=== PATIENT | female | born 1970 | race Caucasian/White ===

== ENCOUNTER 2016-08-28 14:00 | Emergency (ER) | payer OTHER ==
[~2016-08-28] VITALS: Ht 162.5 cm; Wt 80.7 kg
--- NOTE | ~2016-08-28 | EKG ---
[place], [place] ELECTROCARDIOGRAM REPORT NAME: HAMZAH PAREDES UNIT #: [id number] ROOM: DOCTOR: ISABELLE ALEJO MD BIRTHDATE: [birth year] DOS: 08/28/2016 TIME: 14:54:08 RATE AND RHYTHM: Normal sinus rhythm at 69 beats per minute. MO interval 133 milliseconds, QRS duration 76 milliseconds. Corrected QT interval is 444 milliseconds, QRS axis 44. IMPRESSION: 1. Normal sinus rhythm. 2. RSR prime in V1 or V2, probably normal variant. It is essentially a normal electrocardiogram. ISABELLE ALEJO MD CM:EKGRPT:ELECTROCARDIOGRAM REPORT [id number] ISABELLE ALEJO MD
[~2016-08-28 14:00] MED LIST: 'PARAFON FORTE500 M1 PO; B12,B-12,B 12500 MC1 PO; HYDROCODONE BIT1 T11 PO; MEDROL DOSEPAK4 MG PO; PROZAC20 MG PO; ROBAXIN750 MG PO; SMZ-TMP 400 MG-1 TAB PO; TRAMADOL HCL50 MG PO; ZITHROMAX250 MG PO; ZYRTEC10 MG PO
[2016-08-28] MEDS ORDERED: ATORVASTATIN CA10 M1 PO (14:15)
[2016-08-28] MEDS ORDERED: PHARMASSURE1000 MCG PO (14:15)
[2016-08-28] MEDS ORDERED: VENLAFAXINE HY150 M2 PO (14:15)
[2016-08-28] MEDS ORDERED: MASON NATURAL2000 IU PO (14:16)
[2016-08-28 14:49] LABS: BASO % 0.6 % (0.0-1.0); EOS # 0.1 10*3/uL (0.0-0.4); EOS % 1.1 % (1.0-4.0); HEMATOCRIT 42.1 % (37.0-47.0); HEMOGLOBIN 14.3 g/dl (12.0-16.0); LYMPH # 3.2 10*3/uL (1.3-4.4); LYMPH % 44.8 % (27.0-41.0); MEAN CELL VOLUME 90.1 fl (81.0-99.0); MEAN CORPUSCULAR HGB 30.6 pg (27.0-31.0); MEAN PLATELET VOLUME 10.4 fl (9.6-12.3); MONO # 0.4 10*3/uL (0.1-1.0); MONO % 5.9 % (3.0-9.0); NEUT # 3.4 10*3/uL (2.3-7.9); NEUT % 47.3 % (47.0-73.0); PLATELET COUNT AUTOMATED 258 10*3/uL (130-400); RED BLOOD COUNT 4.67 10*6/uL (4.10-5.10); RED CELL DISTRI WIDTH 12.3 % (0-14.5); WHITE BLOOD COUNT 7.2 10*3/uL (4.8-10.8)
[2016-08-28 15:04] LABS: BUN 11 mg/dl (7-24); CARBON DIOXIDE 25 mmol/L (21-32); CHLORIDE 111 mmol/L (98-107); EST GLOM FILT AFRICAN AMERICAN > 60 ml/min; GLUCOSE 86 mg/dL (65-99); POTASSIUM 3.5 mmol/L (3.5-5.1); SODIUM 146 mmol/L (136-145); TROPONIN I < 0.015 ng/ml (<0.5)
[2016-08-28 16:21] LABS: BILIRUBIN NEGATIVE (NEGATIVE); BLOOD NEGATIVE (NEGATIVE); CLARITY CLEAR (CLEAR); COLOR YELLOW (YELLOW); GLUCOSE NEGATIVE (NEGATIVE); KETONE NEGATIVE (NEGATIVE); LEUKO ESTERASE NEGATIVE (NEGATIVE); NITRITE NEGATIVE (NEGATIVE); PROTEIN NEGATIVE (NEGATIVE); UROBILINOGEN 0.2 E.U./dl (0.2-1.0)
[2016-08-28 16:28] LABS: MUCOUS TRACE; RBC 0-2 rbc/hpf (0-2); URINE REFLEX COMMENT NO (NO)
[2016-08-28 16:30] LABS: URINE AMPHETAMINES < 1000 (1000ng/ml); URINE BARBITURATES < 200 (200ng/ml); URINE COCAINE < 300 (300ng/ml)
[2016-10-07] MEDS ORDERED: BENADRYL ALLERG25 M5 PO (21:27)
[2016-10-07] MEDS ORDERED: CLARITIN10 MG PO (21:27)
[2016-10-07] MEDS ORDERED: IBUPROFEN600 MG PO (21:27)
[2016-10-07] MEDS ORDERED: VISTARIL25 MG PO (21:51)
[2016-10-07] MEDS ORDERED: PREDNISONE20 M1 PO (21:51)
== END 2016-08-28 18:24 | disposition home or self-care (01) ==
LOC: ED 14:00
PROVIDERS: Emergency Medicine
DX: G40.909 Epilepsy, unspecified, not intractable, without status epilepticus (principal); J45.909 Unspecified asthma, uncomplicated; F32.9 Major depressive disorder, single episode, unspecified; F17.200 Nicotine dependence, unspecified, uncomplicated; Z90.710 Acquired absence of both cervix and uterus; E53.8 Deficiency of other specified B group vitamins; Z88.6 Allergy status to analgesic agent; Z88.8 Allergy status to other drugs, medicaments and biological substances

== ENCOUNTER 2017-08-04 15:16 | Emergency (ER) | payer SELFPAY ==
[~2017-08-04] VITALS: Wt 76.2 kg
[~2017-08-04 15:16] MED LIST changes: +ATORVASTATIN CA10 M1 PO; +BENADRYL ALLERG25 M5 PO; +CLARITIN10 MG PO; +IBUPROFEN600 MG PO; +MASON NATURAL2000 IU PO; +PHARMASSURE1000 MCG PO; +PREDNISONE20 M1 PO; +VENLAFAXINE HY150 M2 PO; +VISTARIL25 MG PO
[2017-08-04 16:33] LABS: BASO % 0.3 % (0.0-1.0); EOS % 0.2 % (1.0-4.0); HEMATOCRIT 40.5 % (37.0-47.0); HEMOGLOBIN 13.9 g/dl (12.0-16.0); LYMPH # 0.6 10*3/uL (1.3-4.4); MEAN CELL VOLUME 87.5 fl (81.0-99.0); MEAN CORPUSCULAR HGB CONC 34.3 g/dl (33.0-37.0); MEAN PLATELET VOLUME 10.2 fl (9.6-12.3); MONO # 0.5 10*3/uL (0.1-1.0); MONO % 8.5 % (3.0-9.0); NEUT # 4.9 10*3/uL (2.3-7.9); NEUT % 80.5 % (47.0-73.0); PLATELET COUNT AUTOMATED 212 10*3/uL (130-400); RED BLOOD COUNT 4.63 10*6/uL (4.10-5.10); RED CELL DISTRI WIDTH 12.4 % (0-14.5); WHITE BLOOD COUNT 6.1 10*3/uL (4.8-10.8)
[2017-08-04 16:50] LABS: ALBUMIN 3.5 gm/dl (3.1-4.5); ALKALINE PHOSPHATASE 91 U/L (45-117); BUN 7 mg/dl (7-24); CHLORIDE 107 mmol/L (98-107); POTASSIUM 3.6 mmol/L (3.5-5.1); SGOT/AST 13 IU/L (3-35); SGPT/ALT 17 U/L (12-78); SODIUM 139 mmol/L (136-145)
[2017-08-04] MEDS ORDERED: FLONASE ALLERG9.9 ML NAS (16:55)
[2017-08-04] MEDS ORDERED: ZOFRAN ODT4 MG SL (16:55)
== END 2017-08-04 16:56 | disposition home or self-care (01) ==
LOC: ED 15:16
PROVIDERS: Physician Assistant
DX: B34.9 Viral infection, unspecified (principal); F17.200 Nicotine dependence, unspecified, uncomplicated; Z88.8 Allergy status to other drugs, medicaments and biological substances; Z88.6 Allergy status to analgesic agent; Z88.5 Allergy status to narcotic agent; Z90.710 Acquired absence of both cervix and uterus

== ENCOUNTER 2018-07-10 20:20 | Emergency (ER) | payer OTHER ==
[~2018-07-10] VITALS: Ht 162.5 cm; Wt 83.9 kg
[~2018-07-10 20:20] MED LIST changes: +FLONASE ALLERG9.9 ML NAS; +ZOFRAN ODT4 MG SL
== END 2018-07-10 22:25 | disposition home or self-care (01) ==
LOC: ED 20:20
DX: S66.911A Strain of unspecified muscle, fascia and tendon at wrist and hand level, right hand, initial encounter (principal); F17.200 Nicotine dependence, unspecified, uncomplicated; Z88.6 Allergy status to analgesic agent; Z88.5 Allergy status to narcotic agent; Z79.899 Other long term (current) drug therapy; Z90.710 Acquired absence of both cervix and uterus; W00.0XXA Fall on same level due to ice and snow, initial encounter; Y93.89 Activity, other specified; Y92.89 Other specified places as the place of occurrence of the external cause; Y99.8 Other external cause status

== ENCOUNTER 2018-10-02 14:39 | Emergency (ER) | payer OTHER ==
[~2018-10-02] VITALS: Wt 76.2 kg
[2018-10-02] MEDS ORDERED: EPIPEN 2-P0.3 MG/0.3 IJ (15:22)
[2018-10-02] MEDS ORDERED: MEDROL DOSEPAK4 MG PO (15:22)
[2018-10-02] MEDS ORDERED: PEPCID20 MG PO (15:22)
[2018-10-02] MEDS ORDERED: CLARITIN10 MG PO (15:22)
[2018-10-02 15:29] LABS: BASO % 0.2 % (0.0-1.0); EOS % 0.3 % (1.0-4.0); HEMATOCRIT 46.2 % (37.0-47.0); HEMOGLOBIN 15.7 g/dl (12.0-16.0); LYMPH # 2.2 10*3/uL (1.3-4.4); LYMPH % 15.6 % (27.0-41.0); MEAN CELL VOLUME 90.4 fl (81.0-99.0); MEAN CORPUSCULAR HGB 30.7 pg (27.0-31.0); MEAN PLATELET VOLUME 10.5 fl (9.6-12.3); MONO # 0.4 10*3/uL (0.1-1.0); MONO % 3.1 % (3.0-9.0); NEUT # 11.3 10*3/uL (2.3-7.9); NEUT % 80.3 % (47.0-73.0); PLATELET COUNT AUTOMATED 276 10*3/uL (130-400); RED BLOOD COUNT 5.11 10*6/uL (4.10-5.10); RED CELL DISTRI WIDTH 12.6 % (0-14.5)
[2018-10-02 16:04] LABS: BUN 7 mg/dl (7-24); CHLORIDE 109 mmol/L (98-107); CREATININE 0.68 mg/dL (0.55-1.02); POTASSIUM 3.1 mmol/L (3.5-5.1); SODIUM 143 mmol/L (136-145)
== END 2018-10-02 18:06 | disposition home or self-care (01) ==
LOC: ED 14:39
PROVIDERS: Emergency Medicine
DX: T88.6XXA Anaphylactic reaction due to adverse effect of correct drug or medicament properly administered, initial encounter (principal); T36.1X5A Adverse effect of cephalosporins and other beta-lactam antibiotics, initial encounter; G40.909 Epilepsy, unspecified, not intractable, without status epilepticus; J45.909 Unspecified asthma, uncomplicated; F17.200 Nicotine dependence, unspecified, uncomplicated; Z88.6 Allergy status to analgesic agent; Z88.5 Allergy status to narcotic agent; Z88.1 Allergy status to other antibiotic agents; Z90.710 Acquired absence of both cervix and uterus; Y92.89 Other specified places as the place of occurrence of the external cause

== ENCOUNTER 2019-02-04 18:02 | Emergency (ER) | payer OTHER ==
[~2019-02-04] VITALS: Ht 162.5 cm; Wt 85.7 kg
--- NOTE | ~2019-02-04 | EKG ---
[place], [place] ELECTROCARDIOGRAM REPORT NAME: HAMZAH PAREDES UNIT #: [id number] ROOM: DOCTOR: EPIPHANY DRAFT REPORT BIRTHDATE: [address] 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
[~2019-02-04 18:02] MED LIST changes: +EPIPEN 2-P0.3 MG/0.3 IJ; +PEPCID20 MG PO
[2019-02-04 19:06] LABS: HEMATOCRIT 43.7 % (37.0-47.0); HEMOGLOBIN 14.5 g/dl (12.0-16.0); MEAN CELL VOLUME 91.6 fl (81.0-99.0); MEAN CORPUSCULAR HGB 30.4 pg (27.0-31.0); MEAN CORPUSCULAR HGB CONC 33.2 g/dl (33.0-37.0); MEAN PLATELET VOLUME 10.3 fl (9.6-12.3); PLATELET COUNT AUTOMATED 290 10*3/uL (130-400); RED BLOOD COUNT 4.77 10*6/uL (4.10-5.10); RED CELL DISTRI WIDTH 12.1 % (0-14.5); WHITE BLOOD COUNT 10.4 10*3/uL (4.8-10.8)
[2019-02-04 19:22] LABS: ALBUMIN 3.5 gm/dl (3.1-4.5); ALKALINE PHOSPHATASE 93 U/L (45-117); BUN 11 mg/dl (7-24); CHLORIDE 108 mmol/L (98-107); CREATININE 0.77 mg/dL (0.55-1.02); LIPASE 94 U/L (73-393); POTASSIUM 3.8 mmol/L (3.5-5.1); SGOT/AST 11 IU/L (3-35); SGPT/ALT 16 U/L (12-78); SODIUM 141 mmol/L (136-145); TOTAL PROTEIN 6.9 gm/dL (6.4-8.2)
[2019-02-04 19:25] LABS: TROPONIN I < 0.015 ng/ml (<0.045)
[2019-02-04 19:28] LABS: INTERNATIONAL NORM RATIO 0.9 (2.0-3.5)
[2019-02-04 19:40] LABS: TOTAL CELLS COUNTED 100 #CELLS
[2019-02-04 19:41] LABS: PLATELET SUFFICIENCY NORMAL (NORMAL)
[2019-02-04] MEDS ORDERED: LEVAQUIN750 M1 PO (20:31)
[2019-02-04] MEDS ORDERED: PROVENTIL HFA6.7 GM INH (20:31)
[2019-02-04] MEDS ORDERED: ROBITUSSIN DM 101 OZ PO (20:31)
[2019-02-04] MEDS ORDERED: PREDNISONE50 MG PO (20:31)
== END 2019-02-04 21:05 | disposition home or self-care (01) ==
LOC: ED 18:02
PROVIDERS: Nurse Practitioner Family
DX: J18.1 Lobar pneumonia, unspecified organism (principal); J44.9 Chronic obstructive pulmonary disease, unspecified; G40.909 Epilepsy, unspecified, not intractable, without status epilepticus; F17.200 Nicotine dependence, unspecified, uncomplicated; Z88.6 Allergy status to analgesic agent; Z88.1 Allergy status to other antibiotic agents; Z88.5 Allergy status to narcotic agent; Z79.899 Other long term (current) drug therapy; Z90.710 Acquired absence of both cervix and uterus

== ENCOUNTER 2019-05-15 18:22 | Emergency (ER) | payer SELFPAY ==
[~2019-05-15] VITALS: Ht 162.5 cm; Wt 84.4 kg
[~2019-05-15 18:22] MED LIST changes: +LEVAQUIN750 M1 PO; +PREDNISONE50 MG PO; +PROVENTIL HFA6.7 GM INH; +ROBITUSSIN DM 101 OZ PO
[2019-05-15] MEDS ORDERED: ANAPROX DS550 MG PO (20:06)
== END 2019-05-15 20:35 | disposition home or self-care (01) ==
LOC: ED 18:22
DX: M25.511 Pain in right shoulder (principal); Z90.710 Acquired absence of both cervix and uterus; F17.200 Nicotine dependence, unspecified, uncomplicated; Z79.899 Other long term (current) drug therapy; Z88.6 Allergy status to analgesic agent; Z88.5 Allergy status to narcotic agent; Z88.1 Allergy status to other antibiotic agents

== ENCOUNTER 2019-10-03 14:03 | Inpatient (IN) | payer SELFPAY ==
[~2019-10-03] VITALS: Ht 165.1 cm; Wt 84.4 kg
[~2019-10-03 14:03] MED LIST changes: +ANAPROX DS550 MG PO
[2019-10-03 14:11] VITALS: BP 116/59
--- NOTE | 2019-10-03 15:03 | NUR ---
PATIENT UNSURE OF ALL OF HER ALLERGIES TO MEDICATIONS. WHEN ASKED IF PATIENT IS ALLERGIC TO TORADOL OR ZOFRAN SHE STATES SHE DOESNT KNOW. JULIO TALAMANTES NOTIFED AND SHE STATES TO ASK HER IF SHE CAN TAKE MOTRIN. WHEN ASKING PATIENT IS SHE CAN TAKE MOTRIN SHE STATES "I GUESS SO". WHEN ASKED IF SHE HAD AN ALLERGY TO MOTRIN SHE IMMEADIATELY STARTED TO CRY. TORADOL AND ZOFRAN NOT GIVEN AND DC'D PER NOT HAVING COMPLETELY ALLERGY HISTORY OF PATIENT. JULIO TALAMANTES NOTIFIED.
[2019-10-03 15:12] LABS: BASO % 0.7 % (0.0-1.0); EOS # 0.2 10*3/uL (0.0-0.4); EOS % 2.9 % (1.0-4.0); HEMATOCRIT 48.4 % (37.0-47.0); HEMOGLOBIN 16.2 g/dl (12.0-16.0); LYMPH # 2.4 10*3/uL (1.3-4.4); LYMPH % 41.1 % (27.0-41.0); MEAN CELL VOLUME 90.8 fl (81.0-99.0); MEAN CORPUSCULAR HGB 30.4 pg (27.0-31.0); MEAN CORPUSCULAR HGB CONC 33.5 g/dl (33.0-37.0); MEAN PLATELET VOLUME 10.8 fl (9.6-12.3); MONO # 0.8 10*3/uL (0.1-1.0); MONO % 13.2 % (3.0-9.0); NEUT # 2.5 10*3/uL (2.3-7.9); NEUT % 41.9 % (47.0-73.0); PLATELET COUNT AUTOMATED 245 10*3/uL (130-400); RED BLOOD COUNT 5.33 10*6/uL (4.10-5.10); RED CELL DISTRI WIDTH 12.3 % (0-14.5); WHITE BLOOD COUNT 5.9 10*3/uL (4.8-10.8)
--- NOTE | 2019-10-03 15:20 | NUR ---
JULIO TALAMANTES STATES THAT SHE DOES NOT WANT THE ZOFRAN GIVEN TO PATIENT AND ORDERED BENADRYL INSTEAD.
[2019-10-03 15:23] LABS: ACT PARTIAL THROMBO TIME 29.3 SECONDS (20.0-32.1)
[2019-10-03 15:28] LABS: ALBUMIN 3.9 gm/dl (3.1-4.5); ALKALINE PHOSPHATASE 98 U/L (45-117); BUN 12 mg/dl (7-24); CHLORIDE 110 mmol/L (98-107); CREATININE 0.76 mg/dL (0.55-1.02); LIPASE 371 U/L (73-393); POTASSIUM 4.6 mmol/L (3.5-5.1); SGOT/AST 12 IU/L (3-35); SGPT/ALT 20 U/L (12-78); SODIUM 141 mmol/L (136-145); TOTAL PROTEIN 7.4 gm/dL (6.4-8.2); TROPONIN I 0.032 ng/ml (<0.045)
[2019-10-03 15:46] LABS: BILIRUBIN NEGATIVE (NEGATIVE); CLARITY CLEAR (CLEAR); COLOR YELLOW (YELLOW); GLUCOSE NEGATIVE (NEGATIVE); KETONE TRACE (NEGATIVE); SPECIFIC GRAVITY 1.005 (1.005-1.030)
[2019-10-03 15:47] LABS: BLOOD NEGATIVE (NEGATIVE); LEUKO ESTERASE NEGATIVE (NEGATIVE); NITRITE NEGATIVE (NEGATIVE); PH 7.5 (5.0-9.0); UROBILINOGEN 0.2 E.U./dl (0.2-1.0)
[2019-10-03 15:52] LABS: BACTERIA 2+; MUCOUS 1+; RBC 0-2 rbc/hpf (0-2)
--- NOTE | 2019-10-03 17:53 | NUR ---
PATIENT REPORT GIVEN TO GEO CONNELLY AT THIS TIME. PATIENT TAKEN TO FLOOR BY LYNDA CONNELLY.
[2019-10-03 18:00] VITALS: BP 100/50
--- NOTE | 2019-10-03 18:00 | NUR ---
A 49, admitted to , under the services of ISABELLE Raymundo MD with a diagnosis of CHEST PAIN. Chief complaint is ABDOMINLA PAIN N/V/D. Patient arrived via stretcher from ER. Monitor applied. Initial assessment completed. Vital signs taken and recorded. ISABELLE RAYMUNDO MD notified of admission to the unit. Orders received. See assessment for past medical history, medications and allergies. Patient and/or family oriented to unit. [facility] visitation policy reviewed. Clothing/patient valuable form completed. DRU HEARD
[2019-10-03 20:00] VITALS: BP 129/58
--- NOTE | 2019-10-03 21:04 | NUR ---
MESSAGE LEFT WITH DR. ALEJO AWAITING CALL BACK.
[2019-10-04] VITALS: BP 110/60
--- NOTE | 2019-10-04 09:00 | NUR ---
Social Media Project Manager in to talk to patient. Patient states lives at home with her mother and 2 brothers. There are 16 steps in the home. Physician: Dr. Villalpando Pharmacy: [facility] Home health services: none Patient's level of ADLs: INDEPENDENT Patient has working utilities: yes DME: none Follow-up physician's appointment after d/c: she prefers to make her own follow up appt after discharge Does patient want to access PORTAL?: no Discharge plan discussed with patient. She lives at home with her family. She is independent in her ADLs and ambulation. Discussed home health care services and she denies any home needs at this time. When medically stable she will be discharged to home. She is unsure of transportation on discharge at this time. ASHOK SOOD
[2019-10-04 12:00] VITALS: BP 119/56
--- NOTE | 2019-10-04 15:18 | NUR ---
Spoke with regarding consult for epigastric pain. Test results were reviewed with physician. No new orders. Physician to follow up at bedside.
[2019-10-04 16:00] VITALS: BP 113/44
--- NOTE | 2019-10-04 19:23 | NUR ---
24 HR chart check completed.
[2019-10-04 20:00] VITALS: BP 107/72
[2019-10-05] VITALS: BP 115/58
[2019-10-05 08:15] VITALS: BP 118/72
--- NOTE | 2019-10-05 09:00 | NUR ---
Public Finance Specialist in to see patient. No new needs or request at this time. She denies any home needs. When medically stable she will be discharged to home.
[2019-10-05 12:00] VITALS: BP 113/45
--- NOTE | 2019-10-05 13:12 | NUR ---
Contacted radiology regarding US results. She contacted radiologist to expidiate results. Face to face encounter with Dr. Peter regarding this and patients request for nicotrol inhaler. See new orders.
--- NOTE | 2019-10-05 15:50 | NUR ---
Called Dr. Farrell to review US report. Per physician, full liquid diet, NPO for breakfast and EGD tomorrow morning.See new orders.
--- NOTE | 2019-10-05 15:54 | NUR ---
Notified of US reports and 's treatment plan.
[2019-10-05 16:00] VITALS: BP 125/56
[2019-10-05 20:00] VITALS: BP 151/72
--- NOTE | 2019-10-05 20:13 | NUR ---
24 HR chart check completed.
--- NOTE | 2019-10-05 21:00 | NUR ---
RESTING IN BED WITH NO DISTRESS NOTED. RESPIRATIONS EASY. LUNGS DIMINISHED WITH SCATTERED WHEEZES. PULSE OX 96% RA. NON-PROD COUGH. IV FLUIDS INFUSING PER ORDER. CALL LIGHT WITHIN REACH. NO VOICED COMPLAINTS
[2019-10-06] VITALS (8 sets, daily range): BP systolic 110–140; BP diastolic 51–80
--- NOTE | 2019-10-06 | NUR ---
RESTING WITH EYES CLOSED. RESPIRATIONS EASY. VSS. IV FLUIDS MAINTAINED. CALL LIGHT WITHIN REACH.
--- NOTE | 2019-10-06 01:30 | NUR ---
AMBULATING HALLWAY. NO DISTRESS NOTED.
--- NOTE | 2019-10-06 06:00 | NUR ---
RESTED THROUGHOUT NIGHT. IV FLUIDS INFUSING. NPO STATUS MAINTAINED FOR SURGERY. CALL LIGHT WITHIN REACH. NO VOICED COMPLAINTS THIS SHIFT.
[2019-10-06 06:14] LABS: HEMATOCRIT 43.4 % (37.0-47.0); HEMOGLOBIN 14.2 g/dl (12.0-16.0); MEAN CELL VOLUME 91.6 fl (81.0-99.0); MEAN CORPUSCULAR HGB CONC 32.7 g/dl (33.0-37.0); MEAN PLATELET VOLUME 11.2 fl (9.6-12.3); PLATELET COUNT AUTOMATED 250 10*3/uL (130-400); RED BLOOD COUNT 4.74 10*6/uL (4.10-5.10); RED CELL DISTRI WIDTH 12.1 % (0-14.5); WHITE BLOOD COUNT 12.6 10*3/uL (4.8-10.8)
[2019-10-06 06:17] LABS: CREATININE 0.58 mg/dL (0.55-1.02)
[2019-10-06 06:46] LABS: ATYPICAL LYMPHS 3 % (0-0); PLATELET SUFFICIENCY NORMAL (NORMAL); TOTAL CELLS COUNTED 100 #CELLS
--- NOTE | 2019-10-06 07:50 | NUR ---
PT LAYING IN BED RESTING, NO S/S OF DISTRESS, NPO STATUS MAINTAINED, ASSESSMENT COMPLETED, CALL BUTTON WITHIN REACH. RIMA DE LUNA SPNRCC
--- NOTE | 2019-10-06 10:12 | NUR ---
PT LAYING IN BED RESTING, NPO STATUS MAINTAINED, NO COMPLAINTS AT THIS TIME, NO S/S OF DISTRESS, CALL BUTTON WITHIN REACH. RIMA DE LUNA SPNRCC
--- NOTE | 2019-10-06 10:45 | NUR ---
PT TRANSPORTED AT 10:45 BY SURGERY FOR PROCEDURE, SPO2 ROOM AIR. RIMA DE LUNA [facility]
--- NOTE | 2019-10-06 10:45 | NUR ---
PT TAKEN OFF FLOOR FOR SCHEDULED SURGERY.
--- NOTE | 2019-10-06 12:32 | NUR ---
PT REMAINS OFF FLOOR FOR SCEHDULED PROCEDURE. RIMA DE LUNA SPNRCC
--- NOTE | 2019-10-06 12:43 | NUR ---
PT RETURNED TO ROOM.
--- NOTE | 2019-10-06 12:59 | NUR ---
PT SITTING IN BED, ORDERING LUNCH, VISITNG WITH FAMILY, NO S/S OF DISTRESS, N0 COMPLAINTS AT THIS TIME, CALL BUTTON WITHIN REACH. RIMA DE LUNA SPNRCC
--- NOTE | 2019-10-06 13:34 | NUR ---
PT LAYING IN BED, VISITING WITH FAMILY, NO S/S OF DISTRESS, NO COMPLAINTS AT THIS TIME, CALL BUTTON WITHIN REACH, REPORT GIVEN TO JENNA. RIMA DE LUNA SPNRCC
[2019-10-06] MEDS ORDERED: PROTONIX20 MG PO (16:39)
--- NOTE | 2019-10-06 17:01 | NUR ---
Discharge instructions reviewed with patient/family. Patient receptive and verbalizes understanding. Follow-up care arranged. Written instructions given to patient/family. ANDREW TUBBS.
== END 2019-10-06 17:01 | disposition home or self-care (01) | DRG 206 ==
LOC: ED 14:03 → EDHOLD 17:10 → 4E 17:10
PROVIDERS: Nurse Practitioner Family; ADMIT Internal Medicine
PROC: 0DB68ZX Excision of Stomach, Via Natural or Artificial Opening Endoscopic, Diagnostic (ICD-10-PCS; principal; 2019-10-06)
DX: M94.0 Chondrocostal junction syndrome [Tietze] (principal); J44.1 Chronic obstructive pulmonary disease with (acute) exacerbation; F17.210 Nicotine dependence, cigarettes, uncomplicated; J45.909 Unspecified asthma, uncomplicated; F32.9 Major depressive disorder, single episode, unspecified; E53.8 Deficiency of other specified B group vitamins; G40.909 Epilepsy, unspecified, not intractable, without status epilepticus; F12.90 Cannabis use, unspecified, uncomplicated; K29.70 Gastritis, unspecified, without bleeding; K29.80 Duodenitis without bleeding; K44.9 Diaphragmatic hernia without obstruction or gangrene; K20.9 Esophagitis, unspecified; Z88.6 Allergy status to analgesic agent; Z88.1 Allergy status to other antibiotic agents; Z71.6 Tobacco abuse counseling; Z88.5 Allergy status to narcotic agent; Z88.8 Allergy status to other drugs, medicaments and biological substances

== ENCOUNTER 2020-04-19 20:07 | Emergency (ER) | payer OTHER ==
[~2020-04-19] VITALS: Ht 165.1 cm; Wt 84.4 kg
[~2020-04-19 20:07] MED LIST changes: +PROTONIX20 MG PO
[2020-04-19] MEDS ORDERED: VIBRAMYCIN100 MG PO (20:40)
== END 2020-04-19 21:00 | disposition home or self-care (01) ==
LOC: ED 20:07
DX: L73.9 Follicular disorder, unspecified (principal); F17.200 Nicotine dependence, unspecified, uncomplicated; Z88.6 Allergy status to analgesic agent; Z88.1 Allergy status to other antibiotic agents

== ENCOUNTER → 2020-05-17 | Outpatient (CLI) | payer OTHER ==
[~2020-05-17] MED LIST changes: +VIBRAMYCIN100 MG PO
== END | disposition home or self-care (01) ==
LOC: MAMMO 11:20
PROVIDERS: ATTEND Internal Medicine
DX: Z12.31 Encounter for screening mammogram for malignant neoplasm of breast (principal)

== ENCOUNTER 2021-07-07 07:39 | Emergency (ER) | payer OTHER ==
[~2021-07-07] VITALS: Ht 162.5 cm; Wt 84.4 kg
== END 2021-07-07 11:52 | disposition home or self-care (01) ==
LOC: ED 07:39
DX: U07.1 COVID-19 (principal); Z88.6 Allergy status to analgesic agent; Z88.1 Allergy status to other antibiotic agents; J44.9 Chronic obstructive pulmonary disease, unspecified; G40.909 Epilepsy, unspecified, not intractable, without status epilepticus; F17.200 Nicotine dependence, unspecified, uncomplicated

== ENCOUNTER → 2021-10-24 | Outpatient (CLI) | payer OTHER | END | disposition home or self-care (01) | LOC: CARD 12:52 | PROVIDERS: ATTEND Registered Nurse | DX: I20.0 Unstable angina (principal); R06.00 Dyspnea, unspecified; R53.83 Other fatigue; Z72.0 Tobacco use ==

== ENCOUNTER → 2021-12-06 | Outpatient (CLI) | payer OTHER | END | disposition home or self-care (01) | LOC: CARD 13:50 | PROVIDERS: ATTEND Internal Medicine Cardiovascular Disease | DX: I20.0 Unstable angina (principal); R06.00 Dyspnea, unspecified; R53.83 Other fatigue; Z72.0 Tobacco use ==

== ENCOUNTER 2022-02-24 11:35 | Emergency (ER) | payer OTHER ==
[~2022-02-24] VITALS: Ht 162.5 cm; Wt 84.4 kg
[2022-02-24] MEDS ORDERED: CLARITIN10 MG PO (14:01)
[2022-02-24] MEDS ORDERED: MEDROL DOSEPAK4 MG PO (14:01)
== END 2022-02-24 14:14 | disposition home or self-care (01) ==
LOC: ED 11:35
DX: L29.9 Pruritus, unspecified (principal); T37.5X5A Adverse effect of antiviral drugs, initial encounter; J02.9 Acute pharyngitis, unspecified; Y92.89 Other specified places as the place of occurrence of the external cause

== ENCOUNTER 2022-03-12 06:29 | Emergency (ER) | payer OTHER ==
[2022-03-12] MEDS ORDERED: PREDNISONE50 MG PO (09:00)
== END 2022-03-12 09:20 | disposition home or self-care (01) ==
LOC: ED 06:29
DX: J30.81 Allergic rhinitis due to animal (cat) (dog) hair and dander (principal); Z88.8 Allergy status to other drugs, medicaments and biological substances; Z90.710 Acquired absence of both cervix and uterus; Z87.891 Personal history of nicotine dependence

== ENCOUNTER 2022-05-27 10:17 | Emergency (ER) | payer OTHER ==
[~2022-05-27] VITALS: Ht 162.5 cm; Wt 84.4 kg
[2022-05-27 13:32] LABS: BASO % 0.2 % (0.0-1.0); EOS % 0.3 % (1.0-4.0); HEMATOCRIT 45.2 % (37.0-47.0); LYMPH # 0.4 10*3/uL (1.3-4.4); LYMPH % 6.9 % (27.0-41.0); MEAN CELL VOLUME 89.7 fl (81.0-99.0); MEAN CORPUSCULAR HGB 30.2 pg (27.0-31.0); MEAN CORPUSCULAR HGB CONC 33.6 g/dl (33.0-37.0); MEAN PLATELET VOLUME 10.1 fl (9.6-12.3); MONO # 0.7 10*3/uL (0.1-1.0); MONO % 11.4 % (3.0-9.0); NEUT # 5.2 10*3/uL (2.3-7.9); NEUT % 80.7 % (47.0-73.0); PLATELET COUNT AUTOMATED 247 10*3/uL (130-400); RED BLOOD COUNT 5.04 10*6/uL (4.10-5.10); RED CELL DISTRI WIDTH 12.3 % (0-14.5); WHITE BLOOD COUNT 6.4 10*3/uL (4.8-10.8)
[2022-05-27 13:49] LABS: ALKALINE PHOSPHATASE 95 U/L (45-117); BUN 13 mg/dl (7-24); CHLORIDE 110 mmol/L (98-107); CREATININE 0.88 mg/dL (0.55-1.02); POTASSIUM 3.4 mmol/L (3.5-5.1); SGOT/AST 10 IU/L (3-35); SGPT/ALT 16 U/L (12-78); SODIUM 140 mmol/L (136-145); TOTAL PROTEIN 7.2 gm/dL (6.4-8.2)
[2022-05-27] MEDS ORDERED: MEDROL DOSEPAK4 MG PO (15:03)
== END 2022-05-27 15:17 | disposition home or self-care (01) ==
LOC: ED 10:17
PROVIDERS: Nurse Practitioner Family
DX: T78.49XA Other allergy, initial encounter (principal); F17.200 Nicotine dependence, unspecified, uncomplicated; Z88.6 Allergy status to analgesic agent; Z88.1 Allergy status to other antibiotic agents; Z88.5 Allergy status to narcotic agent; Z88.8 Allergy status to other drugs, medicaments and biological substances; Z79.899 Other long term (current) drug therapy; Z90.710 Acquired absence of both cervix and uterus; X58.XXXA Exposure to other specified factors, initial encounter

== ENCOUNTER 2023-04-05 09:18 | Emergency (ER) | payer OTHER ==
[~2023-04-05] VITALS: Ht 165.1 cm; Wt 84.4 kg
[2023-04-05] MEDS ORDERED: OMEPRAZOLE40 MG PO (09:33)
[2023-04-05] MEDS ORDERED: ATORVASTATIN CA40 M1 PO (09:34)
[2023-04-05] MEDS ORDERED: GABAPENTIN100 M2 PO (09:34)
[2023-04-05] MEDS ORDERED: LEADER NATUR1000 MCG PO (09:34)
[2023-04-05] MEDS ORDERED: VENT7GM INH (09:34)
[2023-04-05] MEDS ORDERED: MONTELUKAST SOD10 MG PO (09:34)
[2023-04-05] MEDS ORDERED: VITAMIN D350 MC2 PO (09:35)
[2023-04-05 10:05] LABS: BASO % 0.4 % (0.0-1.0); EOS # 0.1 10*3/uL (0.0-0.4); EOS % 0.9 % (1.0-4.0); HEMATOCRIT 44.5 % (37.0-47.0); LYMPH # 1.8 10*3/uL (1.3-4.4); LYMPH % 17.7 % (27.0-41.0); MEAN CELL VOLUME 89.7 fl (81.0-99.0); MEAN CORPUSCULAR HGB 30.4 pg (27.0-31.0); MEAN CORPUSCULAR HGB CONC 33.9 g/dl (33.0-37.0); MEAN PLATELET VOLUME 10.2 fl (9.6-12.3); MONO # 0.6 10*3/uL (0.1-1.0); MONO % 5.5 % (3.0-9.0); NEUT # 7.6 10*3/uL (2.3-7.9); NEUT % 75.2 % (47.0-73.0); PLATELET COUNT AUTOMATED 265 10*3/uL (130-400); RED BLOOD COUNT 4.96 10*6/uL (4.10-5.10); RED CELL DISTRI WIDTH 12.7 % (0-14.5); WHITE BLOOD COUNT 10.1 10*3/uL (4.8-10.8)
[2023-04-05 10:27] LABS: ALKALINE PHOSPHATASE 103 U/L (46-116); BUN 10 mg/dl (9-23); CHLORIDE 109 mmol/L (98-107); POTASSIUM 3.7 mmol/L (3.4-5.1); SGPT/ALT 10 U/L (10-49); TOTAL PROTEIN 6.6 gm/dL (6.0-8.0)
[2023-04-05] MEDS ORDERED: MELOXICAM15 MG PO (11:09)
[2023-04-05] MEDS ORDERED: PREDNISONE20 M1 PO (11:09)
[2023-04-05] MEDS ORDERED: NICORETTE2 MG PO (11:09)
[2023-04-05] MEDS ORDERED: AVPAK AZITHROM250 M1 PO (11:09)
== END 2023-04-05 11:22 | disposition home or self-care (01) ==
LOC: ED 09:18
PROVIDERS: Emergency Medicine
DX: J44.1 Chronic obstructive pulmonary disease with (acute) exacerbation (principal); M25.552 Pain in left hip; F31.9 Bipolar disorder, unspecified; F41.9 Anxiety disorder, unspecified; Z88.1 Allergy status to other antibiotic agents; Z88.6 Allergy status to analgesic agent; Z88.8 Allergy status to other drugs, medicaments and biological substances; Z88.5 Allergy status to narcotic agent; Z90.710 Acquired absence of both cervix and uterus; F17.200 Nicotine dependence, unspecified, uncomplicated; F12.90 Cannabis use, unspecified, uncomplicated

== ENCOUNTER 2023-06-07 15:00 | Emergency (ER) | payer OTHER ==
[~2023-06-07] VITALS: Ht 165.1 cm; Wt 84.4 kg
[~2023-06-07 15:00] MED LIST changes: +ATORVASTATIN CA40 M1 PO; +AVPAK AZITHROM250 M1 PO; +GABAPENTIN100 M2 PO; +LEADER NATUR1000 MCG PO; +MELOXICAM15 MG PO; +MONTELUKAST SOD10 MG PO; +NICORETTE2 MG PO; +OMEPRAZOLE40 MG PO; +VENT7GM INH; +VITAMIN D350 MC2 PO
[2023-06-07] MEDS ORDERED: BREYNA 160-4.10.3 GM INH (15:27)
[2023-06-07] MEDS ORDERED: PROVENTIL HFA6.7 GM INH (15:27)
[2023-06-07] MEDS ORDERED: SEPTDS PO (15:57)
[2023-06-07] MEDS ORDERED: PREDNISONE20 M1 PO (15:57)
== END 2023-06-07 16:10 | disposition home or self-care (01) ==
LOC: ED 15:00
DX: L25.9 Unspecified contact dermatitis, unspecified cause (principal); F17.200 Nicotine dependence, unspecified, uncomplicated; Z88.1 Allergy status to other antibiotic agents; Z88.6 Allergy status to analgesic agent; Z88.5 Allergy status to narcotic agent; Z79.899 Other long term (current) drug therapy; Z90.710 Acquired absence of both cervix and uterus

== ENCOUNTER 2024-04-30 17:03 | Emergency (ER) | payer OTHER ==
[~2024-04-30] VITALS: Ht 162.5 cm; Wt 845.0 kg
[~2024-04-30 17:03] MED LIST changes: +BREYNA 160-4.10.3 GM INH; +SEPTDS PO
== END 2024-04-30 21:22 | disposition left against medical advice (07) ==
LOC: ED 17:03
DX: M54.50 Low back pain, unspecified (principal); M79.605 Pain in left leg; J44.9 Chronic obstructive pulmonary disease, unspecified; F31.9 Bipolar disorder, unspecified; F41.9 Anxiety disorder, unspecified; F12.90 Cannabis use, unspecified, uncomplicated; F17.200 Nicotine dependence, unspecified, uncomplicated; Z88.1 Allergy status to other antibiotic agents; Z88.6 Allergy status to analgesic agent; Z88.5 Allergy status to narcotic agent; Z88.8 Allergy status to other drugs, medicaments and biological substances; Z90.710 Acquired absence of both cervix and uterus; Z53.29 Procedure and treatment not carried out because of patient's decision for other reasons

== ENCOUNTER 2024-08-24 18:51 | Observation (INO) | payer OTHER ==
[~2024-08-24] VITALS: Ht 162.5 cm; Wt 85.7 kg
[2024-08-24 19:23] VITALS: BP 114/52
[2024-08-24 20:02] LABS: BASO # 0.1 10*3/uL (0.0-0.1); BASO % 0.6 % (0.0-1.0); EOS # 0.2 10*3/uL (0.0-0.4); EOS % 1.4 % (1.0-4.0); HEMATOCRIT 45.8 % (37.0-47.0); MEAN CELL VOLUME 92.2 fl (81.0-99.0); MEAN CORPUSCULAR HGB 29.8 pg (27.0-31.0); MEAN CORPUSCULAR HGB CONC 32.3 g/dl (33.0-37.0); MEAN PLATELET VOLUME 9.9 fl (9.6-12.3); MONO # 0.6 10*3/uL (0.1-1.0); NEUT # 6.5 10*3/uL (2.3-7.9); NEUT % 58.6 % (47.0-73.0); PLATELET COUNT AUTOMATED 311 10*3/uL (130-400); RED BLOOD COUNT 4.97 10*6/uL (4.10-5.10); RED CELL DISTRI WIDTH 13.1 % (0-14.5); WHITE BLOOD COUNT 11.1 10*3/uL (4.8-10.8)
[2024-08-24 20:27] LABS: ALKALINE PHOSPHATASE 116 U/L (46-116); BUN 12 mg/dl (9-23); CHLORIDE 109 mmol/L (98-107); POTASSIUM 3.9 mmol/L (3.4-5.1); SGPT/ALT 9 U/L (5-49); TOTAL PROTEIN 6.7 gm/dL (6.0-8.0)
[2024-08-24] MEDS ORDERED: Magnesium Hydroxide 30 ML UDC PO PRN (23:30)
[2024-08-24] MEDS ORDERED: TEMAZEPAM 15 MG CAP PO PRN (23:30)
[2024-08-24] MEDS ORDERED: Ondansetron Hydrochloride 4 MG/2 ML VIAL IV PRN (23:30)
[2024-08-24] MEDS ORDERED: ACETAMINOPHEN 650 MG SUPP R PRN (23:30)
[2024-08-24] MEDS ORDERED: BISACODYL 10 MG SUPP R PRN (23:30)
[2024-08-24] MEDS ORDERED: BISACODYL 5 MG TAB PO PRN (23:30)
[2024-08-24] MEDS ORDERED: ACETAMINOPHEN 325 MG TAB PO PRN (23:30)
[2024-08-24] MEDS ORDERED: Pantoprazole Sodium 40 MG TAB PO PRN (23:35)
[2024-08-24] MEDS ORDERED: ATORVASTATIN CA80 M1 PO (23:42)
[2024-08-24] MEDS ORDERED: CAPLYTA21 M1 PO (23:44)
[2024-08-24] MEDS ORDERED: ZETIA10 MG PO (23:44)
[2024-08-24] MEDS ORDERED: HYDROXYZINE PAM25 M1 PO (23:44)
[2024-08-24] MEDS ORDERED: NAPROXEN500 MG PO (23:45)
[2024-08-24] MEDS ORDERED: MIRTAZAPINE30 M2 PO (23:45)
[2024-08-24] MEDS ORDERED: Ketorolac Tromethamine 15 MG/ML VIAL IV ONE (23:50)
[2024-08-24] MEDS ORDERED: FAMOTIDINE 20 MG TAB PO ONE (23:50)
[2024-08-24] MEDS ORDERED: Albuterol Sulf/Ipratropium 3 ML VIAL NEB PRN (23:55)
[2024-08-25 00:29] VITALS: BP 110/66
[2024-08-25 04:12] LABS: BASO # 0.1 10*3/uL (0.0-0.1); BASO % 0.7 % (0.0-1.0); EOS # 0.2 10*3/uL (0.0-0.4); EOS % 1.7 % (1.0-4.0); MEAN CELL VOLUME 92.2 fl (81.0-99.0); MEAN CORPUSCULAR HGB 30.2 pg (27.0-31.0); MEAN CORPUSCULAR HGB CONC 32.7 g/dl (33.0-37.0); MONO # 0.6 10*3/uL (0.1-1.0); MONO % 6.7 % (3.0-9.0); NEUT # 4.4 10*3/uL (2.3-7.9); NEUT % 48.3 % (47.0-73.0); PLATELET COUNT AUTOMATED 269 10*3/uL (130-400); RED BLOOD COUNT 4.77 10*6/uL (4.10-5.10); RED CELL DISTRI WIDTH 13.3 % (0-14.5)
[2024-08-25 04:33] LABS: BUN 12 mg/dl (9-23); CHLORIDE 110 mmol/L (98-107); CHOLESTEROL 211 mg/dL (<200); LDL CHOLESTEROL 145 mg/dL (9-159); POTASSIUM 3.9 mmol/L (3.4-5.1); TRIGLYCERIDES 144 mg/dl (<150)
[2024-08-25 05:00] VITALS: BP 120/58
[2024-08-25] MEDS ORDERED: Regadenoson 0.4 MG/5 ML SYR IV ONE (06:35)
[2024-08-25] MEDS ORDERED: Enoxaparin Sodium 40 MG/0.4 ML SYR SC SCH (10:00)
[2024-08-25] MEDS ORDERED: CARAFATE1 G1 PO (14:05)
== END 2024-08-25 16:14 | disposition home or self-care (01) ==
LOC: ED 18:51 → EDHOLD 22:54
PROVIDERS: Emergency Medicine; Student in an Organized Health Care Education/Training Program; ADMIT Internal Medicine; ATTEND Internal Medicine
DX: R07.89 Other chest pain (principal); D72.829 Elevated white blood cell count, unspecified; E87.8 Other disorders of electrolyte and fluid balance, not elsewhere classified; E53.8 Deficiency of other specified B group vitamins; J45.909 Unspecified asthma, uncomplicated; F32.9 Major depressive disorder, single episode, unspecified; F17.200 Nicotine dependence, unspecified, uncomplicated; Z79.899 Other long term (current) drug therapy